=== PATIENT | female | born 1995 | race Two or more races ===

== ENCOUNTER 2024-09-10 19:36 | Inpatient (IN) | payer OTHER ==
[~2024-09-10] VITALS: Ht 157.5 cm; Wt 68.0 kg
[2024-09-10] MEDS ORDERED: HUMALOG100 UNIT/2 SQ (20:13)
[2024-09-10] MEDS ORDERED: INSULIN SYRING1 EA29 MC (20:13)
[2024-09-10] MEDS ORDERED: LASIX20 MG PO (20:16)
[2024-09-10 22:34] LABS: BASO % 0.9 % (0.1-1.2); EOS # 0.42 (0.04-0.54); EOS % 4.6 % (0.7-7.0); HEMATOCRIT 45.3 % (34.1-44.9); HEMOGLOBIN 15.4 g/dL (11.2-15.7); LYMPH # 3.38 (1.18-3.74); LYMPH % 37.2 % (19.3-53.1); MEAN CORPUSCULAR HEMOGLOBIN 28.7 pg (25.6-32.2); MONO # 0.64 (0.24-0.82); NEUT # 4.55 (1.56-6.13); NEUT % 50.1 % (34.0-71.1); PLATELET COUNT 293 K/uL (163-369); RED BLOOD COUNT 5.37 M/uL (3.93-5.22); RED CELL DISTRIBUTION WIDTH 13.2 % (11.6-14.4)
[2024-09-10 23:36] LABS: URINE APPEARANCE Clear; URINE BILIRRUBIN Negative (NEGATIVE); URINE BLOOD Negative; URINE COLOR Yellow; URINE GLUCOSE Negative (NEGATIVE); URINE KETONE Negative (NEGATIVE); URINE LEUKOCYTE Trace; URINE NITRATE Negative; URINE PROTEIN 30 (NEGATIVE)
[2024-09-10 23:39] LABS: CREATININE SERUM 1.12 mg/dL (0.55-1.02); GFR 58.35; POTASSIUM 3.88 mEq/L (3.5-5.1)
[2024-09-10 23:42] LABS: URINE EPITHELIAL CELLS 4.1 uL (0.0-38.8); URINE WBC 32.5 uL (0.0-23.2)
[2024-09-10 23:43] LABS: URINE BACTERIA 123.5 uL (0.0-1933)
[2024-09-11] MEDS ORDERED: 0.9 % SODIUM CHLORIDE 1,000 ML IV STA (00:06)
[2024-09-11 02:16] VITALS: BP 112/75
[2024-09-11] MEDS ORDERED: DEXTROSE 5 %-0.45 % SOD CHLORD 1,000 ML IV SCH (08:30)
[2024-09-11 08:51] VITALS: BP 145/70
[2024-09-11] MEDS ORDERED: PANTOPRAZOLE SODIUM 40 MG/VIAL VIAL IV PUSH SCH (09:00)
[2024-09-11] MEDS ORDERED: LEVOTHYROXINE SODIUM 100MCG/ML REDILUIDO IV SCH (09:00)
[2024-09-11] MEDS ORDERED: HYDROCORTISONE SODIUM SUCC/PF 100 MG VIAL IV SCH (09:00)
[2024-09-11 09:33] LABS: ABG PH 7.405 (7.35-7.45); ABG PO2 95.4 mmHg (80-100); ABG pCO2 41.2 mmHg (35-45); BASE EXCESS 0.4 mmol/l; BICARBONATE 25.2 mmol/l (23-25); SaO2 97.4 %; Tco2 26.5 mmol/l
[2024-09-11 11:06] LABS: allen test SATISFACTORY; mode ROOM AIR; o2 21 %; puncture site RADIAL LEFT
[2024-09-11] MEDS ORDERED: PATIENTS OWN MEDICATION (MEDICAMENTO EN PISO) SUBCUTANEO ONE (13:00)
[2024-09-11] MEDS ORDERED: INSULIN LISPRO 1,000 UNIT/10 ML UNITS SUBCUTANEO ONE (13:06)
[2024-09-11 13:21] LABS: ALBUMIN 3.7 gm/dL (3.4-5.0); BILIRUBIN TOTAL 0.4 mg/dL (0.3-1.2); BILIRUBIN,CONJUGATED 0.13 mg/dL (0.0-0.2); BILIRUBIN,UNCONJUGATED 0.27 mg/dL (0.0-0.6); FREE TRIODOTIRONINE 0.66 pg/ml (2.18-3.98); T4 FREE 0.35 NG/ML (0.76-1.46); TOTAL PROTEIN 7.5 gm/dL (6.4-8.2)
[2024-09-11 13:23] LABS: CHOL HDL RATIO 4.7 (0-5.0); TSH 86.3 uIU/mL (0.358-3.74)
[2024-09-11 17:00] VITALS: BP 128/77; O2SAT 99
[2024-09-11] MEDS ORDERED: HYDROCORTISONE SODIUM SUCC/PF 50 MG/ML ML IV SCH (17:00)
[2024-09-12 01:39] VITALS: BP 111/68; O2SAT 98
[2024-09-12 08:34] LABS: BASO % 0.7 % (0.1-1.2); EOS # 0.11 (0.04-0.54); EOS % 1.1 % (0.7-7.0); HEMATOCRIT 42.1 % (34.1-44.9); HEMOGLOBIN 14.3 g/dL (11.2-15.7); LYMPH # 3.07 (1.18-3.74); LYMPH % 30.5 % (19.3-53.1); MEAN CORPUSCULAR HEMOGLOBIN 29.6 pg (25.6-32.2); MONO # 0.82 (0.24-0.82); MONO % 8.1 % (4.7-12.5); NEUT # 5.98 (1.56-6.13); NEUT % 59.4 % (34.0-71.1); PLATELET COUNT 277 K/uL (163-369); RED BLOOD COUNT 4.83 M/uL (3.93-5.22); RED CELL DISTRIBUTION WIDTH 13.5 % (11.6-14.4)
[2024-09-12 08:54] LABS: CALCIUM 8.1 mg/dL (8.5-10.1); GFR 66.51; MAGNESIUM 1.9 mg/dL (1.8-2.4); PHOSPHOROUS 2.5 mg/dL (2.5-4.9); POTASSIUM 3.54 mEq/L (3.5-5.1)
[2024-09-12 09:00] VITALS: BP 131/81; O2SAT 100
[2024-09-12] MEDS ORDERED: SODIUM CHLORIDE 0.45 % 1,000 ML IV SCH (10:30)
[2024-09-12] MEDS ORDERED: LEVOTHYROXINE SODIUM 100MCG/ML REDILUIDO IV SCH ×2 (12:00→23:45)
[2024-09-12] MEDS ORDERED: LEVOTHYROXINE SODIUM 100MCG/ML REDILUIDO IV NR (13:16)
[2024-09-12 16:35] VITALS: BP 132/86; O2SAT 94
[2024-09-13 00:49] VITALS: BP 110/73
[2024-09-13] MEDS ORDERED: LEVOTHYROXINE SODIUM 100 MCG TABLET PO SCH (06:00)
[2024-09-13 09:08] VITALS: BP 136/88; O2SAT 97
[2024-09-13] MEDS ORDERED: LEVOTHYROXINE SODIUM 100 MCG/VIAL VIAL IV STA (09:23)
[2024-09-13] MEDS ORDERED: SYNTHROID100 MCG PO (09:46)
[2024-09-15 15:08] LABS: anti thy < 1.0 IU/mL (0.0-0.9); tpo 122 IU/mL (0-34)
== END 2024-09-13 12:55 | disposition home or self-care (01) | DRG 645 ==
LOC: ER 22:25 → MEDJ 23:57
PROVIDERS: General Practice; ADMIT Internal Medicine; ATTEND Internal Medicine
PROC: B246ZZZ Ultrasonography of Right and Left Heart (ICD-10-PCS; principal; 2024-09-11)
PROC: 4A12X4Z Monitoring of Cardiac Electrical Activity, External Approach (ICD-10-PCS; 2024-09-11)
DX: E03.9 Hypothyroidism, unspecified (principal); E10.65 Type 1 diabetes mellitus with hyperglycemia; E06.3 Autoimmune thyroiditis; R60.1 Generalized edema; R00.1 Bradycardia, unspecified; Z79.4 Long term (current) use of insulin